=== PATIENT | male | born 1960 | race Caucasian/White ===

== ENCOUNTER → 2018-10-29 | Outpatient (CLI) | payer OTHER ==
[~2018-10-29] MED LIST: BUPIVACAINE MPF 0.25% 10 ML VIAL. ONE; BUPIVACAINE MPF 0.25% 30 ML VIAL. ONE
== END | disposition home or self-care (01) ==
LOC: SURG 10:34
PROVIDERS: ATTEND Anesthesiology
DX: M79.18 Myalgia, other site (principal); I48.91 Unspecified atrial fibrillation; Z86.711 Personal history of pulmonary embolism; G47.30 Sleep apnea, unspecified; G89.29 Other chronic pain; Z98.890 Other specified postprocedural states; Z79.899 Other long term (current) drug therapy; Z72.89 Other problems related to lifestyle; M54.16 Radiculopathy, lumbar region; Z87.01 Personal history of pneumonia (recurrent); M19.90 Unspecified osteoarthritis, unspecified site
CPT/HCPCS: 20553; J3490

== ENCOUNTER → 2018-11-12 | Outpatient (CLI) | payer OTHER ==
[~2018-11-12] MED LIST changes: -BUPIVACAINE MPF 0.25% 10 ML VIAL. ONE; +methylPREDNISolone ACETATE 40 MG/ML VIAL. ONE
== END | disposition home or self-care (01) ==
LOC: SURG 11:39
PROVIDERS: ATTEND Anesthesiology
DX: M79.18 Myalgia, other site (principal); G47.30 Sleep apnea, unspecified; I48.91 Unspecified atrial fibrillation; M19.90 Unspecified osteoarthritis, unspecified site; Z98.890 Other specified postprocedural states
CPT/HCPCS: 20553; J1030; J3490